=== PATIENT | male | born 1935 | race Caucasian/White ===

== ENCOUNTER → 2016-12-09 | Outpatient (CLI) | payer MEDICARE ==
[~2016-12-09] MED LIST: ANTIVERT-DPS25 MG PO; ASA CHILDREN'S81 MG PO; ASPIR 8181 MG PO; ASPIRIN EC81 MG PO; BRILINTA90 MG PO; CALCIUM600 MG PO; CARAFATE DPS1 GM PO; CLARITIN DPS10 MG PO; COLACE-DPS100 MG PO; COUMADIN DPS2 MG PO; COUMADIN5 MG PO; CULTURELLE1 CAP PO; DELTASONE DPS10 MG PO; DULCOLAX-DPS5 MG PO; ENTRESTO 24 MG1 EACH PO; FEOSOL-DPS325 MG PO; GAMMAGARD S-D10 GM IV; IMODIUM DPS2 MG PO; INVANZ1 GM IV; IRON18 MG PO; KLOR-CON M2020 ME1 PO; LASIX DPS40 MG PO; LAXATIVE5 M1 PO; LEVAQUIN DPS500 MG PO; LISINOPRIL10 MG PO; MAALOX DPS30 ML PO; MARYS PO; METOPROLOL SUCC25 MG PO; METOPROLOL TART25 MG PO; MORPHINE S100 MG/5 M PO; MORPHINE S20 MG/1 ML PO; MUCINEX600 MG PO; NITROSTAT0.4 MG SL; NORMAL SALINE FL5 ML IV; OCTAGAM 10% VI200 ML IV; OYSTER SHELL C500 MG PO; PHENERGAN6.25 MG/5 PO; PLAVIX75 MG PO; PRESERVISION A1 EAC1 PO; PRESERVISION A1 EACH PO; PRILOSEC DPS20 MG PO; PROTONIX40 MG PO; SURFAK DPS240 MG PO; THERA1 EACH PO; TUMS DPS500 MG PO; TYLENOL DPS325 MG PO; VALTREX DPS1 GM PO; VANCOCIN-DPS1 GM IV; VITAMIN D35000 UNI1 PO; ZESTRIL DPS10 MG PO; ZESTRIL DPS2.5 MG PO; [UNRECOGNIZED DRUG - OTHER] PO
== END | disposition home or self-care (01) ==
DX: Z51.81 Encounter for therapeutic drug level monitoring (principal); Z79.01 Long term (current) use of anticoagulants

== ENCOUNTER 2016-12-11 04:56 | Inpatient (IN) | payer MEDICARE ==
[~2016-12-11] VITALS: Ht 170.2 cm; Wt 73.7 kg
--- NOTE | ~2016-12-11 | ECH ---
Transthoracic Echocardiography Report (TTE) Demographics Patient Name PAUL HOOKER Date of Study 12/11/2016 Patient Number [id number] Visit Number [id number] Date of 1935 Room Number 425 Accession Number [id number] Gender Male Age 81 year(s) Referring Coco Giles MD Watch Crystal Cutter Anny Thomas [facility] Physician Physician Aleisha Gaines MD Home Health Scheduler Physician Brent Supervising Ordering Physician Dariana Monae MD/MAMIE ATKINS Nurse Stress Athletic Coach Conclusions Contractility Score Summary At rest the following contractility abnormalities were noted: Hypokinesis of the Apical inferior, the Apical lateral and the Apical anterior segments; Akinesis of the Apical septal and the Apical cap segments. Contractility of all other segments appeared normal. Summary Technically adequate exam. The estimated left ventricular ejection fraction is 40-45%. Segmental wall motion abnormalities noted. Mild concentric left ventricular hypertrophy. Left ventricular apical thrombus noted 1.68x 1.36cm. The left atrium is severely dilated by LA volume index measurement. Compared to echo done 09/18/16 the apical mural thrombus is smaller. Recommendation The patient will be given the results of this study by the physician who ordered the exam. Procedure Type of Study TTE procedure:Echo Limited SF. Procedure Date Date: 12/11/2016 Start: 11:33 Technical Quality: Adequate visualization Indications:LV thrombus, Shortness of breath and Chest pain. Additional Indications:limited echo to evaluate left ventricular function and thrombus Appropriate Use Criteria: 9 Height: 67 inches Weight: 174 pounds BSA: 1.91 m Rhythm: NSR HR: 70 bpm BP: 125/50 mmHg Allergies - Penicillin. - Sulfa. - Other:(Cefdinir, Statins, Tetracycline). M-Mode/2D Measurements LV Diastolic Dimension: 5.28 cm LV Systolic Dimension: 4.07 cm LV Septum Diastolic: 1.13 cm LV PW Diastolic: 1.17 cm AO Root Dimension: 2.75 cm LA Dimension: 4.78 cm RV Diastolic Dimension: 3.49 cm LA volume: 104.89 ml LA volume index: 55 ml/m LVOT: 1.78 cm RV Base: 3 cm RV Mid: 2.1 cm RV Length: 6.6 cm TAPSE: 1.73 cm TDI-S': 10 cm/s Doppler Measurements RA Area: 16.57 cm Findings Left Ventricle The left ventricle is normal in size . Mild concentric left ventricular hypertrophy. Left ventricular apical thrombus noted 1.68x 1.36cm. Right Ventricle Normal right ventricle structure and function. Left Atrium The left atrium is severely dilated by LA volume index measurement. Right Atrium Normal right atrial size. Pericardial Effusion No evidence of pericardial effusion. Miscellaneous Visualized portions of the aortic root and ascending aorta appear normal in size. Pleural Effusion No evidence of pleural effusion. Contractility Score LV regional wall motion:(0-Non visualized 1-Normal 2-Hypokinesis 3-Akinesis 4-Dyskinesis 5-Aneurysm) Signature
[~2016-12-11 04:56] MED LIST changes: -ANTIVERT-DPS25 MG PO; -ASPIRIN EC81 MG PO; -CALCIUM600 MG PO; -CARAFATE DPS1 GM PO; -COLACE-DPS100 MG PO; -COUMADIN DPS2 MG PO; -COUMADIN5 MG PO; -CULTURELLE1 CAP PO; -DELTASONE DPS10 MG PO; -ENTRESTO 24 MG1 EACH PO; -FEOSOL-DPS325 MG PO; -IMODIUM DPS2 MG PO; -INVANZ1 GM IV; -KLOR-CON M2020 ME1 PO; -NORMAL SALINE FL5 ML IV; -PRESERVISION A1 EAC1 PO; -TUMS DPS500 MG PO; -VANCOCIN-DPS1 GM IV
--- NOTE | 2016-12-15 01:31 | ER ---
ADMIT: 12/11/2016 RM/LOC: 425 [facility] MR#: [id number] 2620 [facility] [address] [place], [place] [address] PAUL HOOKER [address] [place] [address] Emergency Room Report SEX: M AGE: 81 : 1935 DATE: 12/11/2016 See T-sheet for complete H and P. ADDENDUM: HISTORY AND PHYSICAL: The patient is an 81-year-old male with known coronary artery disease, who presents to the ER complaining of increased shortness of breath. Additionally, states he has had some nausea in the past 2 nights and actually had a subjective fever last night. He does normally complain of some chest pain and when asked initially, did not complain of any real change or concerns with the chest pain that he is having at this time, it is his baseline. Later during questioning, he does state that maybe his chest pain is a little bit more than normal. REVIEW OF SYSTEMS: A 12-point review of systems is done and otherwise negative except as in HPI. PAST MEDICAL HISTORY: Significant for coronary artery disease, hypertension, GERD. PREVIOUS PROCEDURES/SURGERIES: He has had a stent, an appendectomy, cholecystectomy, and a tonsillectomy. MEDICATIONS: See nurse's note. He is currently on: 1. Aspirin. 2. Coumadin. 3. Plavix. ALLERGIES: SEE NURSE'S NOTE. SOCIAL HISTORY: Lives with his and does not smoke, drink, or use drugs. PHYSICAL EXAMINATION: See T-sheet. LABORATORY DATA: Hemoglobin of 10.9. Chemistries are normal. Lactic acid 0.9. CK of 69, CK-MB of 31, troponin of 1.86, BNP of 15,614, INR is 1.35. EMERGENCY DEPARTMENT COURSE: With the patient's complaints of subjective fevers, shortness of breath, I did go ahead and start the sepsis protocol on ADMIT: 12/11/2016 RM/LOC: 425 [facility] MR#: [id number] [address] [address] PAUL HOOKER [address] [place] [address] Emergency Room Report SEX: M AGE: 81 : 1935 the patient. Chest x-ray showed nothing acute, his lactic acid was fine as was his white count. His troponin, however, was elevated and had a high BNP. I contacted Dr. Gaines, who is familiar with the patient and plan at this time is to start the patient on the heparin ACS protocol for the possibility of a ywd-FS-qejkanwts NH, and he will be admitted. He normally sees Dr. Sepulveda, so I contacted Dr. Westbrook, who will be writing admission orders. DIAGNOSES: 1. Shortness of breath. 2. Chest pain. 3. Elevated troponin. 4. Asn-VT-fgmowqfrw myocardial infarction. Arvin Hamilton MD/ eboni JOB #: [id number] CC: Luis Alfredo Sepulveda MD, Attending Physician Luis Alfredo Sepulveda MD, Family Physician
[2016-12-18] MEDS ORDERED: CALCIUM600 MG PO (13:46)
[2016-12-18] MEDS ORDERED: CULTURELLE1 CAP PO (13:49)
[2016-12-18] MEDS ORDERED: COLACE-DPS100 MG PO (13:50)
[2016-12-18] MEDS ORDERED: IMODIUM DPS2 MG PO (13:50)
[2016-12-18] MEDS ORDERED: NORMAL SALINE FL5 ML IV (13:51)
[2016-12-18] MEDS ORDERED: KLOR-CON M2020 ME1 PO (13:51)
[2016-12-18] MEDS ORDERED: VANCOCIN-DPS1 GM IV (13:51)
--- NOTE | 2016-12-20 07:57 | HP ---
ADMIT: 12/11/2016 RM/LOC: 425 [facility] MR#: [id number] [address] [address] PAUL HOOKER [address] [address] History and Physical SEX: M AGE: 81 : 1935 DATE OF SERVICE: HISTORY OF PRESENT ILLNESS: The patient is an 81-year-old male with a complicated past medical history that includes coronary artery disease, status post 4 stents, chronic chest pain, IgG subclass deficiency, pancytopenia, and some congestive heart failure who has been hospitalized for the above complaints multiple times over the last 6-8 months. He comes into the emergency room tonight with some worsening of his chronic chest pain that has been continual over the last 24-48 hours. His chest pain is substernal. He has some associated shortness of breath. He has also had a mild cough over the last few days, which is what delayed his presentation to the emergency room for his current symptoms. Although, the records are unavailable to myself at this time, he says that he is being followed closely by Cardiology due to a clot in his heart that is about 3/4 inch x 1 inch. He has recently been placed on Coumadin for this. Review of records show his last echo was in June of 2016, which revealed EF of 40-45% with some apical akinesis, severely dilated left atrium and a mildly dilated ascending aorta at 3.5 cm. He did have a cardiac cath in June 2015, which showed some severe 3-vessel kaguy[place] coronary artery disease, patent SVG to LAD, INVESTMENT SALES ASSISTANT of the RCA, and a thrombotic occlusion of the patent SVG to OM branch. At this time, he had PCI to his left circumflex and OM branch and has been on dual antiplatelets since. ER course; workup in the emergency room revealed troponin of 1.86, which is certainly elevated from [place] [address]. Cardiology was contacted. He was started on heparin per acute coronary syndrome protocol. He states his chest pain is still there and is constant though is not worsening or severe at this time. He is admitted to the hospital for acute coronary syndrome. PAST MEDICAL HISTORY: As mentioned above significant for recent hospitalizations for pneumonia and sepsis along with CHF exacerbations. Also, has a history of chronic chest pain. coronary artery disease, status post stents, severe GERD, Shiloh fundoplication, Mason's esophagus, and IgG deficiency. PAST SURGICAL HISTORY: Shiloh fundoplication, appendectomy, tonsillectomy, and cholecystectomy. SOCIAL HISTORY: The patient is retired. He is to his Frantz of 50 years who is with him here today. He is a former smoker. Has not smoked over the last 20 years. REVIEW OF SYSTEMS: The patient does endorse recent fever though he does have a history of fever of unknown origin in the past. He denies any nausea and vomiting. He does endorse some worsening of his chronic chest pain. He also notes that he has been having fatigue of his lower extremities especially and feels like "his legs are not strong enough to support him anymore." Denies any neurologic signs, numbness, or tingling. No urinary complaints. MEDICATIONS: ADMIT: 12/11/2016 RM/LOC: 425 [facility] MR#: [id number] [address] [place] [id number] PAUL HOOKER [address] [place] [address] History and Physical SEX: M AGE: 81 : 1935 1. Valacyclovir 1 g b.i.d. 2. Metoprolol 25 mg 12-1/ in the morning and 12-1/2 in the evenings. 3. Protonix 40 mg daily. 4. Plavix 75 mg daily. 5. Furosemide 40 mg b.i.d. 6. Sucralfate 1 g q.i.d. 7. Warfarin dose has been being adjusted recently. 8. Roxanol p.r.n. for chest pain. 9. PreserVision 20 mg b.i.d. 10.Multivitamin. 11.Aspirin 81 mg daily. 12.Vitamin D 5000 units b.i.d. 13.Calcium 600 mg b.i.d. 14.Iron 325 mg daily. 15.Maalox p.r.n. ALLERGIES: INCLUDE PENICILLIN, TETRACYCLINE, SULFA, TRIMETHOPRIM, AND STATIN. PHYSICAL EXAMINATION: VITAL SIGNS: Temp 99.5, pulse 72, respirations 16, blood pressure 125/50, O2 saturation 97% on room air. GENERAL: The patient is awake, alert, and oriented, and in no acute distress. He is conversational. He is sitting in his hospital room with his . He is in good spirits and very pleasant. HEENT: The patient does wear glasses. Normocephalic and atraumatic. Mucous membranes are moist. NECK: Supple. No lymphadenopathy. No JVD noted. No carotid bruit auscultated. CARDIAC: Regular rhythm and rate. No S3 or S4. No murmurs appreciated. LUNGS: Clear to auscultation bilaterally. No wheezes, rhonchi, or rales. ABDOMEN: Soft, nontender, and nondistended. Normoactive bowel sounds. NEUROLOGIC: Cranial nerves II through XII grossly intact. No focal neurological deficits. EXTREMITIES: No cyanosis. He does have trace edema below the knees bilaterally. Peripheral pulses are 2+ upper and lower extremities bilaterally. Cap refill is less than 3 seconds. LABS AND IMAGING: INR is 1.35. Lactic acid 0.9. White count 8.1, hemoglobin 10.9, platelets 118. He is slightly macrocytic. Blood typing is A positive. CMP is normal except for slightly elevated glucose at 119, phosphorus is low at 2.1. Albumin is low at 2.8. Corrected calcium is normal. GFR is 79. His CK is 69, MB is 3.1, troponin [place] 1.86, [place] [address], procalcitonin is normal. Chest x-ray shows some atelectasis of the left lower lobe but no acute findings. EKG has normal sinus rhythm with some inverted ST in the V2 through V4 leads. ASSESSMENT AND PLAN: 1. Acute coronary syndrome with elevated troponin and a history of coronary artery disease with stenting. We started him on heparin ACS protocol. I ADMIT: 12/11/2016 RM/LOC: 425 [facility] MR#: [id number] [address] [address] PAUL HOOKER [address] [place] [address] History and Physical SEX: M AGE: 81 : 1935 would appreciate Cardiology input. Of note, he has had elevated troponins in the past that are just secondary to sepsis and other illnesses. 2. Recurrent fevers and aphthous stomatitis thought to be secondary to his IgG deficiency. He is due for his next infusion in one week. We currently do not have Infectious Disease on board, but could consider that if fevers return during this hospitalization. 3. Gastroesophageal reflux disease status post Shiloh fundoplication. 4. Chronic chest pain. In addition to heparin, the patient has morphine for pain control. He was given a full-strength aspirin. We will continue to trend out his enzymes. We will keep him on bedrest and n.p.o. until Cardiology see him in case they wanted to do a procedure. Candido Gonzalez MD Resident / Luis Alfredo Sepulveda MD / eboni JOB #: [id number] CC: Luis Alfredo Sepulveda, Attending Physician Luis Alfredo Sepulveda, Family Physician
[2016-12-26] MEDS ORDERED: VALTREX DPS1 GM PO (11:13)
[2016-12-26] MEDS ORDERED: METOPROLOL TART25 MG PO (11:13)
[2016-12-26] MEDS ORDERED: PROTONIX40 MG PO (11:14)
[2016-12-26] MEDS ORDERED: PLAVIX75 MG PO (11:14)
[2016-12-26] MEDS ORDERED: LASIX DPS40 MG PO (11:14)
[2016-12-26] MEDS ORDERED: COUMADIN DPS2 MG PO (11:15)
[2016-12-26] MEDS ORDERED: CARAFATE DPS1 GM PO (11:15)
[2016-12-26] MEDS ORDERED: MORPHINE S100 MG/5 M PO (11:15)
[2016-12-26] MEDS ORDERED: VITAMIN D35000 UNI1 PO (11:16)
[2016-12-26] MEDS ORDERED: FEOSOL-DPS325 MG PO (11:16)
[2016-12-26] MEDS ORDERED: PRESERVISION A1 EAC1 PO (11:16)
[2016-12-26] MEDS ORDERED: THERA1 EACH PO (11:16)
[2016-12-26] MEDS ORDERED: ASPIRIN EC81 MG PO (11:16)
[2016-12-26] MEDS ORDERED: COUMADIN5 MG PO (11:17)
[2016-12-26] MEDS ORDERED: MAALOX DPS30 ML PO (11:17)
[2016-12-26] MEDS ORDERED: TYLENOL DPS325 MG PO (11:17)
--- NOTE | 2017-01-06 10:31 | CO ---
ADMIT: 12/11/2016 RM/LOC: 425 [facility] MR#: [id number] 2620 [facility] [address] [place], [place] [address] [address]UL HOOKER [address] [place] [address] Consultation SEX: M AGE: 81 : 1935 DATE OF CONSULTATION: 12/11/2016 ATTENDING PHYSICIAN: Luis Alfredo Sepulveda CONSULTING PHYSICIAN: Farhana Burdick MD REASON FOR CONSULT: Low IgG and fevers. Thank you, Dr. Sepulveda, for the consult and involving me in this patient's care. HISTORY OF PRESENT ILLNESS: Mr. Hooker is an 81-year-old man with history of coronary artery disease, who came into ER this morning with complaint of increased shortness of breath. He did complain of some fever around 102 degrees Fahrenheit, followed by nausea and vomiting since the last 2 days. He was noted to have increased troponin and non-ST elevation myocardial infarction. He is also on anticoagulation for left ventricular thrombus. The patient has history of IgG deficiency, and he has been receiving IV immunoglobulins as an outpatient and his last dose was on November 22, 2016. The patient has a right arm PICC line, which was placed around 2 to 3 months back per the patient as he is a hard stick. At present, he feels mildly better, and he has had no fever since admission. PAST MEDICAL HISTORY: 1. Recurrent pneumonias. 2. GI bleed. 3. Coronary artery bypass graft. 4. Shiloh fundoplication x2. 5. Peptic ulcer disease. 6. Chronic chest pain. 7. Right shoulder pain. PAST SURGICAL HISTORY: Cataract surgery, appendectomy, tonsillectomy, cholecystectomy, and multiple gastroscopies and colonoscopy. ALLERGIES: ATIVAN, PENICILLIN, CEPHALOSPORIN, SULFA, LIPITOR, AND TETRACYCLINE. SOCIAL HISTORY: He lives at home with his . Denies any alcohol or recreational drug use. Quit smoking in 1996. FAMILY HISTORY: Significant for diabetes mellitus in his sibling. REVIEW OF SYSTEMS: A 10-point review of systems negative except as mentioned in the HPI. CURRENT MEDICATIONS: 1. Aspirin. 2. Carafate. ADMIT: 12/11/2016 RM/LOC: 425 [facility] MR#: [id number] [address] [address] [address] [place] [address] Consultation SEX: M AGE: 81 : 1935 3. Feosol. 4. Lasix. 5. Lopressor. 6. Plavix. 7. Valtrex 1 g b.i.d. 8. Vitamin D. 9. Heparin drip. PHYSICAL EXAMINATION: VITAL SIGNS: Current temperature 98, heart rate 77, respirations 20, blood pressure 124/52, and 96% on room air. GENERAL: In no acute distress. HEENT: Head is normocephalic and atraumatic. Extraocular movements are intact. CHEST: Decreased breath sounds bilaterally. No wheezes, rales, or rhonchi. CARDIOVASCULAR: S1 and S2 heard. No murmurs, rubs, or gallops. ABDOMEN: Soft, nontender, and nondistended. Active bowel sounds. EXTREMITIES: No peripheral edema. SKIN: No rash noted on exposed skin. PSYCH: Normal affect. Memory intact. DATA REVIEW: CBC shows white count of 8.1, hemoglobin 10.9, and platelets of 118. Urinalysis is negative with just 2 wbc's. BMP shows creatinine of 0.9 and normal AST and ALT. ASSESSMENT AND PLAN: 1. Non-ST elevated myocardial infarction, currently on anticoagulation. 2. Left ventricular thrombus, on anticoagulation. 3. Fever - He has been afebrile since admission. His chest x-ray showed possible left lower lobe atelectasis. His PICC line site has mild erythema, and I recommend removing it and culturing the tip. The blood cultures are pending at this time. I do not think he needs any antibiotic at this time. 4. IgG subclass deficiency - Received IVIG on November 22, 2016. His next dose is due next week. 5. Coronary artery disease, status post CABG and PCI. Thank you for the consult, and I will continue to follow the patient. Farhana Burdick MD/ eboni JOB #: [id number] CC: Luis Alfredo Sepulveda, Attending Physician Luis Alfredo Sepulveda, Family Physician
--- NOTE | 2017-01-08 07:11 | DS ---
ADMIT: 12/11/2016 RM/LOC: 425 [facility] MR#: [id number] [address] [address] [place] [address] [place] [address] Discharge Summary SEX: M AGE: 81 : 1935 ADMISSION DATE: 12/11/2016 DISCHARGE DATE: 12/17/2016 DISCHARGE DIAGNOSES: 1. Staph bacteremia, on antibiotics. 2. IgG subclass deficiency. 3. Coronary artery disease with chest pain. 4. Left ventricular thrombus, on anticoagulation therapy. CONSULTATIONS: 1. Tang Westbrook MD, Cardiology. 2. Farhana Burdick MD, Infectious Disease. BRIEF HISTORY OF PRESENT ILLNESS: The patient is an 81-year-old male with a complicated past medical history, including coronary artery disease, status post four stents, chronic chest pain, IgG subclass deficiency, CHF, and left ventricular thrombus. He presented to the hospital and has been hospitalized multiple times for the above complaints over the last 6-8 months. Came into the emergency room on December 11 with complaints of chest pain and shortness of breath. In the emergency room, he was found to have an elevated troponin of 1.86. He does have a history of elevated troponin, but given his complaints and complicated medical history, he was admitted for acute coronary syndrome and started on a heparin drip. HOSPITAL COURSE: Cardiology was consulted, who agreed with trending cardiac enzymes but thought that given patient's unusual presentation and complicated medical history, that his elevation in troponin reflects a secondary illness rather than acute coronary syndrome. They agreed to continue rule-out and anticoagulation for his left ventricular thrombus, especially given that his INR was subtherapeutic on presentation to the emergency room. Infectious Disease was also consulted for patient's IgG subclass deficiency as well as a fever here in the hospital. They recommended removing his chronic PICC line and culturing the tip as well as drawing blood cultures, but we did not start antibiotics immediately at that time. Troponin did not continue to elevate and patient remained afebrile. However, one of two blood cultures tested positive for gram positive cocci, so we started him on clindamycin, and this was changed to vancomycin by our infectious disease specialist. Social Work was contacted regarding setting him up with either Home Health or outpatient infusions of antibiotics as he was going to need antibiotics for an extended period of time. Cardiology performed an echo to evaluate the left ventricular thrombus. He remained stable from a cardiac standpoint, and Cardiology signed off. INR became therapeutic so heparin drip was stopped and patient was resumed on his home Coumadin. He was de-escalated to telemetry status. He did have a bout of diarrhea here in the hospital. His C diff was negative so this was treated with [id number] antidiarrheal medications. Electrolytes were monitored and replaced as necessary. Social Work was able to arrange for infusions of not only his IgG, which he receives weekly, but also the vancomycin antibiotic at the [facility], which is closer to the patient's house. He remained stable and on December 17 he was discharged home ADMIT: 12/11/2016 RM/LOC: 425 [facility] MR#: [id number] [address] [place] [phone] [facility] [place] [address] Discharge Summary SEX: M AGE: 81 : 1935 with plans for vancomycin until December 23 for an indication of Staph bacteremia. DISCHARGE MEDICATIONS: 1. Valacyclovir 1 g b.i.d. 2. Pantoprazole 40 mg daily. 3. Metoprolol 12.5 mg b.i.d. 4. Clopidogrel 75 mg daily. 5. Furosemide 40 mg b.i.d. 6. Sucralfate 1 g q.i.d. 7. Morphine 30 mg q.4 p.r.n. 8. PreserVision b.i.d. 9. Multivitamin daily. 10.Aspirin 81 mg daily. 11.Vitamin D 5000 units b.i.d. 12.Calcium 600 mg b.i.d. 13.Iron 325 mg at bedtime. 14.Maalox p.r.n. 15.Warfarin 2 mg on Friday, Friday, Friday, , Friday, Friday and 2.5 mg on Fridays. 16.He was also discharged on vancomycin infusions per above. FOLLOWUP: The patient is to have a regular diet. He is to have an INR checked in 1-2 weeks and follow up with Dr. Sepulveda in 1-2 weeks, which was scheduled for 12/27 at 2:10 in the afternoon. Candido Gonzalez MD Resident / Luis Alfredo Sepulveda MD / antoine JOB #: [id number] CC: Luis Alfredo Sepulveda MD, Attending Physician Luis Alfredo Sepulveda MD, Family Physician
--- NOTE | 2017-01-10 10:32 | CO ---
ADMIT: 12/11/2016 RM/LOC: 425 [facility] MR#: [id number] [address] [address] PAUL HOOKER [address] [place] [address] Consultation SEX: M AGE: 81 : 1935 DATE OF CONSULTATION: 12/11/2016 ATTENDING PHYSICIAN: Luis Alfredo Sepulveda CONSULTING PHYSICIAN: Tang Westbrook MD REASON FOR CONSULT: Chest Pain. Elva Segura, VERONICA, scribing for Dr. Tang Westbrook. HISTORY OF PRESENT ILLNESS: Selvin is a pleasant 81-year-old gentleman, I have been asked to see in Cardiology consultation by Dr. Sepulveda for chest discomfort. He follows regularly at [facility]. He was last seen on 11/[address] Raman. He has history of coronary artery disease, status post myocardial infarction in June of 2015 resulting in a proximal OM1 drug-eluting stent X2, and proximal circumflex drug-eluting stent as well. He also has history of SVG to LAD and SVG to marginal branch circumflex bypass in 1995, hypertension, hyperlipidemia, former tobacco use, and chronic angina. Last echocardiogram was in June of 2016, showing ejection fraction of 40% to 45% with apical akinesis and severe left atrial enlargement in the hospital. He had a followup echo in September of this year, showing apical mural thrombus 1.6 x 2.3 cm with ejection fraction continued around 40%. He has been on anticoagulation for that. Last stress test was in 2015, showing infarct but no new ischemia compared to 2013. Selvin presented to [facility] early this morning with complaints of chest discomfort and severe shortness of breath. He has had multiple hospitalizations lately in the last 6 months over pneumonia and fevers. Selvin presented last night with shortness of breath that he describes a severe. His states that the night before last, he had 102.9 temperature, and all day yesterday just did not feel good. He was unable to eat because of nausea and generalized illness. Last night, his temperature was a 102.5, and he was having a lot of emesis. He went to bed to rest, however at 3:30 in the morning he woke up extremely short of breath stating he could not breathe at all and asked to be brought to the emergency room. His drove him in. He also had some chest heaviness last night that radiated down his left arm. He was diaphoretic all day yesterday. No nausea last night with the chest discomfort. His states that up until two days ago he had been feeling fine. Cardiac enzymes were drawn and CK was 69, MB 3.1, with a relative index of 4.5, and a troponin of 1.86. Looking back into his hospitalization in June, his peak troponin at that time was 5.66 with 103 temperature and aspiration pneumonia. At the time of his myocardial infarction in June of 2015, his troponin was about 6.8. He does state that his symptoms prior to GA in June 2016, his symptoms were due to extreme chest discomfort, heaviness, tightness, and then he feels that is different than what he was experiencing last night. EKG did not show any significant ST-T changes consistent with acute GA. PAST MEDICAL HISTORY: Hypertension; hyperlipidemia; previous tobacco use ADMIT: 12/11/2016 RM/LOC: 425 [facility] MR#: [id number] [address] [place] [phone] PAUL [address] [place] [address] Consultation SEX: M AGE: 81 : 1935 after a 30 pack year history; coronary artery disease as outlined above; IgG subclass disorder, receiving IVIG infusions. He does currently have mouth sore stating this happened about one week prior to his next infusion. History of peptic ulcer disease with hiatal hernia, GERD, difficulty swallowing, gallbladder disease. PAST SURGICAL HISTORY: Includes Shiloh fundoplication, cholecystectomy, hiatal hernia surgeries, inguinal hernia surgeries, and bypass surgeries. ALLERGIES: PENICILLIN, STATINS, WELCHOL, SULFA, AND TETRACYCLINES. MEDICATIONS: Current medications include: 1. Aspirin 81 daily. 2. Carafate 1 g a.c. and at bedtime. 3. Iron sulfate 325 daily. 4. Lasix 40 p.o. b.i.d. 5. Lopressor 12.5 p.o. b.i.d. 6. Oyster shell calcium 500 p.o. b.i.d. 7. Plavix 75 daily. 8. Protonix 40 daily. 9. Multivitamin daily. 10.Valtrex 1 g p.o. b.i.d. 11.Vitamin D 5000 units p.o. b.i.d. 12.Heparin drip per protocol for subtherapeutic INR with Coumadin. FAMILY HISTORY: Multiple family members with cancer. SOCIAL HISTORY: Selvin is . He lives at home with his . He denies any alcohol or drug use. He has quit smoking after a 30 pack year history, but reports caffeine use. REVIEW OF SYSTEMS: GENERAL: Reports increased fatigue over the last few days. Recent fever up to 102.9. No weight changes. EYES: Denies double vision, blurred vision, cataracts, or glaucoma. ENT: Denies hearing loss or problems with nose, mouth or throat. RESPIRATORY: Recent pneumonia. No hemoptysis. Shortness of breath on arrival to the hospital. GASTROINTESTINAL: History of GERD. History of hiatal hernia. History of gallbladder disease, status post cholecystectomy. History of Shiloh fundoplication. GENITOURINARY: Denies dysuria, hematuria, nocturia, urinary tract infection, or kidney stones. Denies history of renal insufficiency or failure. MUSCULOSKELETAL: Denies history of arthritis or gout. Denies muscle or joint pains. ENDOCRINE: Denies history of thyroid dysfunction or diabetes. HEMATOLOGY: IgG subclass disorder. NEUROLOGIC: Denies history of stroke or seizure. PSYCHIATRIC: Denies history of mental illness or feelings of depression. ADMIT: 12/11/2016 RM/LOC: 425 [facility] MR#: [id number] [address] [facility] [address] [place], [place] [address] PAUL HOOKER [address] [place] [address] [place] [address] Consultation SEX: M AGE: 81 : 1935 PHYSICAL EXAMINATION: VITAL SIGNS: Blood pressure 125/50, heart rate 72, respirations 16, temperature 99.5, oxygenation 97% on room air. GENERAL: Pale, alert, good humor. SKIN: [place], warm and dry. HEENT: Eyes; sclerae clear. No xanthelasmas. Discoloration of tongue. CHEST: Respirations are even and unlabored. Lungs are clear to auscultation. HEART: Regular rate and rhythm. Normal S1, S2. No murmurs, rubs or gallops. ABDOMEN: Soft, nontender. Multiple scars. MUSCULOSKELETAL: Gait is normal. EXTREMITIES: Peripheral pulses palpable. No clubbing, cyanosis or edema. PSYCHIATRIC: Alert and oriented. Mood and affect are appropriate. LABORATORY AND DIAGNOSTIC DATA: Chest x-ray on 12/11, showed atelectasis versus scarring in the left lower lobe. Sodium 137, potassium 4.0, BUN 16, creatinine 0.9, glucose 119, magnesium 2.3. CK 69, MB 3.1, troponin 1.86, relative index 4.5, INR 1.35. White blood cell count 8.1, hemoglobin 10.9, hematocrit 31.9, platelets 118. ASSESSMENT AND PLAN: 1. Equivocal troponin. 2. Recent diagnosis of apical LV thrombus. 3. Recurrent fevers. 4. Known history of coronary artery disease. 5. Ischemic cardiomyopathy. 6. Immunodeficiency. Selvin is a pleasant 81-year-old gentleman with known history of coronary artery disease and chronic chest pain. He was admitted with fever, shortness of breath, and chest discomfort. His troponin was 1.8. He has history of elevated troponin in the past as well. He has recurrent fevers and he is IgG deficient. ADMIT: 12/11/2016 RM/LOC: 425 [facility] MR#: [id number] [address] [facility] [address] [place] [phone] PAUL [address]ER [address] [place] [address] Consultation SEX: M AGE: 81 : 1935 Selvin is a very unusual presentation. I do not think this reflects an ACS, but it is probably secondary to his current illness. I would recommend continue to rule out with cardiac enzymes. His INR is subtherapeutic given his history of apical thrombus. I am okay with him on heparin at this time. I will check a limited echo for LV function and history of his LV apical thrombus as well. Thank you for the consultation. "I have read and agree with the documentation that has been completed regarding this visit. By signing this record, I attest that the documentation was completed in my physical presence and is an accurate record of the encounter." Elva Segura RN / Tang Westbrook MD / eboni JOB #: [id number] CC: Luis Alfredo Sepulveda, Attending Physician Luis Alfredo Sepulveda, Family Physician
[2017-01-29] MEDS ORDERED: TUMS DPS500 MG PO (12:36)
[2017-01-29] MEDS ORDERED: INVANZ1 GM IV (12:37)
[2017-01-29] MEDS ORDERED: NITROSTAT0.4 MG SL (12:37)
[2017-01-29] MEDS ORDERED: COLACE-DPS100 MG PO (12:37)
[2017-01-29] MEDS ORDERED: DELTASONE DPS10 MG PO (12:39)
[2017-01-29] MEDS ORDERED: KLOR-CON M2020 ME1 PO (12:39)
[2017-01-29] MEDS ORDERED: ANTIVERT-DPS25 MG PO (12:40)
[2017-01-29] MEDS ORDERED: CALCIUM600 MG PO (12:40)
[2017-01-29] MEDS ORDERED: CULTURELLE1 CAP PO (12:40)
[2017-03-06] MEDS ORDERED: ENTRESTO 24 MG1 EACH PO (13:09)
== END 2016-12-17 12:15 | disposition home or self-care (01) | DRG 313 ==
LOC: ER 04:56 → 4PCU 06:41
PROVIDERS: ADMIT Family Medicine
DX: R07.9 Chest pain, unspecified (principal); I24.0 Acute coronary thrombosis not resulting in myocardial infarction; D80.3 Selective deficiency of immunoglobulin G [IgG] subclasses; R78.81 Bacteremia; I50.9 Heart failure, unspecified; I11.0 Hypertensive heart disease with heart failure; B95.8 Unspecified staphylococcus as the cause of diseases classified elsewhere; R06.02 Shortness of breath; I25.5 Ischemic cardiomyopathy; K12.0 Recurrent oral aphthae; R19.7 Diarrhea, unspecified; R79.89 Other specified abnormal findings of blood chemistry; I25.10 Atherosclerotic heart disease of native coronary artery without angina pectoris; K21.9 Gastro-esophageal reflux disease without esophagitis; K22.70 Barrett's esophagus without dysplasia; I25.2 Old myocardial infarction; E78.5 Hyperlipidemia, unspecified; Z79.02 Long term (current) use of antithrombotics/antiplatelets; Z79.01 Long term (current) use of anticoagulants; Z95.5 Presence of coronary angioplasty implant and graft; Z87.11 Personal history of peptic ulcer disease; Z87.891 Personal history of nicotine dependence; Z79.82 Long term (current) use of aspirin

== ENCOUNTER 2016-12-19 19:44 | Emergency (ER) | payer MEDICARE ==
[~2016-12-19 19:44] MED LIST changes: +CALCIUM600 MG PO; +COLACE-DPS100 MG PO; +CULTURELLE1 CAP PO; +IMODIUM DPS2 MG PO; +KLOR-CON M2020 ME1 PO; +NORMAL SALINE FL5 ML IV; +VANCOCIN-DPS1 GM IV
--- NOTE | 2016-12-20 19:27 | ER ---
ADMIT: 12/19/2016 RM/LOC: ER [facility] MR#: [id number] [address] [address] PAUL HOOKER [address] [place] [address] [place] [address] Emergency Room Report SEX: M AGE: 81 : 1935 DATE: 12/19/2016 HISTORY OF PRESENT ILLNESS: The patient is an 81-year-old male with past medical history of CHF, coronary artery disease status post double bypass, multiple pneumonias, and IgG deficiency, who receives monthly injection of the IVIG, came to the ER with chief complaint of fever. The patient was recently hospitalized by the end of the November for non-ST elevation TX, and the patient was febrile and blood culture was positive for Staphylococcus hominis and Staphylococcus epidermidis and patient was discharged to home with PICC line and daily vancomycin intravenous treatment. The patient states today during IVIG injection, he became nauseous and vomited once and, per , became febrile to 102.2 and was brought to the ER. The patient denies any headaches, chest pain, shortness of breath, abdominal pain, or any new symptoms and states the nausea and vomiting has resolved. PHYSICAL EXAMINATION: GENERAL: In the ER, the patient was in no obvious pain or distress. VITAL SIGNS: Temperature in the triage was 100.7. The patient had blood pressure of 126/56 with a heart rate of 80 and respiratory rate of 18. HEAD AND NECK: Exam was normal, trachea midline. LUNGS: Clear bilaterally without any crackles. HEART: Normal heart sounds. ABDOMEN: Soft and nontender. The rest of the physical exam is negative. The patient has a PICC line in left upper extremity which is nonerythematous and there are no obvious signs of infection around the PICC line. EMERGENCY DEPARTMENT COURSE: Considering the elevated temperature, sepsis workup on this patient was started. Chest x-ray did not show any acute changes. EKG was normal sinus rhythm with a rate of 87 and cardiac enzymes troponin I was negative. Urine had 3 wbc's and 10 rbc's. Lactic acid was 1.7. The patient had sodium of 135 with potassium 4.4 and bicarb of 24 and creatinine of 1.0 and BUN of 15. The patient had WBC of 8.6 with hemoglobin ADMIT: 12/19/2016 RM/LOC: ER [facility] MR#: [id number] [address] [address] [address] [facility] [place] [address] Emergency Room Report SEX: M AGE: 81 : 1935 of 10.9 and platelet was 145,000. In the ER, the patient was observed, and in the repeat temperature check, the patient's temperature was 97 degrees. The patient was in no pain or distress. After talking to Dr. Westbrook and discussing the patient, Dr. Westbrook knew the patient very well, we both agreed that this could be a reaction to the intravenous immunoglobulin injection, although there is always a chance of infection, but the patient is already on antibiotic therapy IV. Dr. Westbrook advised that the patient could be safely discharged to home and could be followed up as an outpatient by Dr. Sepulveda. Plan was discussed with the patient and spouse and they both acknowledged they understood and agreed with it and they are going to call Dr. Sepulveda's office tomorrow morning. The patient was discharged to home with return precautions. Keith Cagle MD/ eboni JOB #: [id number] CC: Keith Cagle MD, Attending Physician Luis Alfredo Sepulveda MD, Family Physician
[2016-12-26] MEDS ORDERED: VALTREX DPS1 GM PO (11:13)
[2016-12-26] MEDS ORDERED: METOPROLOL TART25 MG PO (11:13)
[2016-12-26] MEDS ORDERED: PLAVIX75 MG PO (11:14)
[2016-12-26] MEDS ORDERED: LASIX DPS40 MG PO (11:14)
[2016-12-26] MEDS ORDERED: PROTONIX40 MG PO (11:14)
[2016-12-26] MEDS ORDERED: COUMADIN DPS2 MG PO (11:15)
[2016-12-26] MEDS ORDERED: MORPHINE S100 MG/5 M PO (11:15)
[2016-12-26] MEDS ORDERED: CARAFATE DPS1 GM PO (11:15)
[2016-12-26] MEDS ORDERED: PRESERVISION A1 EAC1 PO (11:16)
[2016-12-26] MEDS ORDERED: THERA1 EACH PO (11:16)
[2016-12-26] MEDS ORDERED: VITAMIN D35000 UNI1 PO (11:16)
[2016-12-26] MEDS ORDERED: ASPIRIN EC81 MG PO (11:16)
[2016-12-26] MEDS ORDERED: FEOSOL-DPS325 MG PO (11:16)
[2016-12-26] MEDS ORDERED: COUMADIN5 MG PO (11:17)
[2016-12-26] MEDS ORDERED: MAALOX DPS30 ML PO (11:17)
[2016-12-26] MEDS ORDERED: TYLENOL DPS325 MG PO (11:17)
[2017-01-29] MEDS ORDERED: TUMS DPS500 MG PO (12:36)
[2017-01-29] MEDS ORDERED: INVANZ1 GM IV (12:37)
[2017-01-29] MEDS ORDERED: NITROSTAT0.4 MG SL (12:37)
[2017-01-29] MEDS ORDERED: COLACE-DPS100 MG PO (12:37)
[2017-01-29] MEDS ORDERED: DELTASONE DPS10 MG PO (12:39)
[2017-01-29] MEDS ORDERED: KLOR-CON M2020 ME1 PO (12:39)
[2017-01-29] MEDS ORDERED: ANTIVERT-DPS25 MG PO (12:40)
[2017-01-29] MEDS ORDERED: CALCIUM600 MG PO (12:40)
[2017-01-29] MEDS ORDERED: CULTURELLE1 CAP PO (12:40)
[2017-03-06] MEDS ORDERED: ENTRESTO 24 MG1 EACH PO (13:09)
== END 2016-12-19 22:52 | disposition home or self-care (01) ==
LOC: ER 19:44
DX: R50.9 Fever, unspecified (principal); I25.10 Atherosclerotic heart disease of native coronary artery without angina pectoris; I50.9 Heart failure, unspecified; Z90.49 Acquired absence of other specified parts of digestive tract; Z88.0 Allergy status to penicillin; Z88.2 Allergy status to sulfonamides; Z79.82 Long term (current) use of aspirin; Z79.899 Other long term (current) drug therapy

== ENCOUNTER 2016-12-23 12:40 | Observation (INO) | payer MEDICARE ==
[~2016-12-23] VITALS: Ht 170.2 cm; Wt 74.0 kg
--- NOTE | 2016-12-24 07:57 | HP ---
ADMIT: 12/23/2016 RM/LOC: 520 [facility] MR#: [id number] 2620 [facility] [address] [place] [phone] PAUL HOOKER W [address] [place] [address] History and Physical SEX: M AGE: 81 : 1935 DATE OF SERVICE: CHIEF COMPLAINT: Mental status change, fever, nausea, and vomiting. HISTORY OF PRESENT ILLNESS: Mr. Fowler is an 81-year-old male who was admitted to [place] on December 11 with similar symptoms. Cultures at that time grew out some Staph species and did have a PICC line in. It was assumed that he did have a Staph sepsis due to the PICC line. The PICC line was removed. He was treated initially with IV Zosyn and IV vancomycin. He was dismissed on December 17, after six days of inpatient to receive another six days of outpatient IV vancomycin. He also has IgG subclass deficiency and receives outpatient immunoglobulin G. On December 19, he received his outpatient IgG and developed fever, chills, and was seen in the emergency room. The emergency room physician after counseling in our office felt that it was probably due to his IV gamma globulin and reaction to that. He continued to receive his IV vancomycin as outpatient through [facility], where they live in [place]. Over this past 2 to 3 days, he has had low grade temperatures, just not felt right. This morning he was in [place] outpatient area to get his last dose of IV vancomycin. He was confused, had some nausea and vomiting there. They called our office, we had them hold on giving the vancomycin and sent him over to our office. Once he arrived to our office, he had the temperature of 99.8. He is not able to say what year it is, otherwise he recalls what he had for breakfast this morning. His , Frantz, is with him and drove him. He denies any pain, but does admit to feeling a little bit queasy and nauseated, just kind of confused, not really sure what is going on. He does recognize me. He knows what month it is, what day of the week it is, but do not know what year it was. His , Frantz, states this morning when she was getting ready to go in for IV vancomycin, he seemed confused and was not sure how to get dressed and she had to help him. He denies any head injuries or any headache. He has no focal neurological signs other than the confusion. Due to confusion and low-grade temp and recent hospitalization for sepsis, he is re-admitted to the hospital this time for further culturing. He has had recurrent pneumonias and pneumonitis, which was felt to be contributed to by his IgG subclass deficiency and by silent aspiration. PAST MEDICAL HISTORY: As outlined in all the previous history and physicals over the last year. He does have extensive history of coronary artery disease, recurrent pneumonia, Shiloh fundoplication surgery x2, peptic ulcer disease, and GI bleed in January 2016. Hospitalized with pneumonia into March and May 2016, and then recently hospitalized here last week with Staph infection of the PICC line, which was removed and he was treated appropriately. He is followed by Dr. Burdick, outpatient for his IgG subclass deficiency; followed by [facility], Dr. Tang Westbrook, for his coronary artery disease. He has had previous CABG and angioplasties on multiple occasions. ALLERGIES: HE IS ALLERGIC TO PENICILLIN, TETRACYCLINE, SULFA, STATINS, AND ADMIT: 12/23/2016 RM/LOC: 520 [facility] MR#: [id number] [address] [place] [phone] PAUL HOOKER [address] [place] [address] [place] [address] History and Physical SEX: M AGE: 81 : 1935 TRIMETHOPRIM. MEDICATIONS: Current medications are; 1. Coumadin. 2. Roxanol for chronic chest pain. 3. Lasix 40 mg daily. 4. Valtrex 1 g t.i.d. 5. Coumadin dose is 2.5 mg once a week and 2 mg other 6 days. 6. Iron 325 mg daily. 7. Lopressor 12.5 mg b.i.d. 8. Carafate 1 g q.i.d. 9. PreserVision. 10.The outpatient immunoglobulin injections every month in Short Stay surgery. FAMILY HISTORY: Unchanged from last week. SOCIAL HISTORY: Unchanged from last week. REVIEW OF SYSTEMS: Unchanged from last week. PHYSICAL EXAMINATION: GENERAL: An 81-year-old male who is alert and cooperative. As mentioned, he did not know the year, but he is cognizant of other events, but seems a little bit confused on what is going on today. VITAL SIGNS: In the office, temperature 99.8, blood pressure 112/60, pulse 75, and O2 saturation 90% on room air. HEENT: Eyes, PERRLA. EOMs are intact. Sclerae are nonicteric. Throat is moist, not inflamed. NECK: Supple. LUNGS: Clear. A little bit upper congestion. No respiratory distress. HEART: Regular rate. No murmur. ABDOMEN: Soft. No tenderness. GENITOURINARY: Deferred. RECTAL: Deferred. EXTREMITIES: No clubbing, cyanosis, or edema. LABORATORY DATA: Chest x-ray in the office showed some bilateral scarring, but no definite infiltrates. White blood count was slightly elevated at 10.4 and hemoglobin was 12.5. Urinalysis was unremarkable. ADMIT: 12/23/2016 RM/LOC: 520 [facility] MR#: [id number] [facility] [address] [address] PAUL HOOKER [address] [place] [address] [place] [address] History and Physical SEX: M AGE: 81 : 1935 DIAGNOSTIC IMPRESSION: 1. Acute mental status change, probably secondary to metabolic process, related to the fever and the nausea and vomiting. 2. Recent Staphylococcal sepsis. 3. IgG subclass deficiency. 4. History of recurrent pneumonitis. 5. Coronary artery disease. 6. Gastroesophageal reflux disease. PLAN: We will admit to the hospital for cultures of the blood, obtain sepsis markers, CT scan of the head, get an Infectious Disease consult with Dr. Burdick. Luis Alfredo Sepulveda MD/ eboni JOB #: [id number] CC: Luis Alfredo Sepulveda, Attending Physician Luis Alfredo Sepulveda, Family Physician
[2016-12-26] MEDS ORDERED: METOPROLOL TART25 MG PO (11:13)
[2016-12-26] MEDS ORDERED: VALTREX DPS1 GM PO (11:13)
[2016-12-26] MEDS ORDERED: PLAVIX75 MG PO (11:14)
[2016-12-26] MEDS ORDERED: PROTONIX40 MG PO (11:14)
[2016-12-26] MEDS ORDERED: LASIX DPS40 MG PO (11:14)
[2016-12-26] MEDS ORDERED: MORPHINE S100 MG/5 M PO (11:15)
[2016-12-26] MEDS ORDERED: COUMADIN DPS2 MG PO (11:15)
[2016-12-26] MEDS ORDERED: CARAFATE DPS1 GM PO (11:15)
[2016-12-26] MEDS ORDERED: FEOSOL-DPS325 MG PO (11:16)
[2016-12-26] MEDS ORDERED: THERA1 EACH PO (11:16)
[2016-12-26] MEDS ORDERED: VITAMIN D35000 UNI1 PO (11:16)
[2016-12-26] MEDS ORDERED: ASPIRIN EC81 MG PO (11:16)
[2016-12-26] MEDS ORDERED: PRESERVISION A1 EAC1 PO (11:16)
[2016-12-26] MEDS ORDERED: TYLENOL DPS325 MG PO (11:17)
[2016-12-26] MEDS ORDERED: COUMADIN5 MG PO (11:17)
[2016-12-26] MEDS ORDERED: MAALOX DPS30 ML PO (11:17)
--- NOTE | 2017-01-06 10:31 | CO ---
ADMIT: 12/23/2016 RM/LOC: 520 [facility] MR#: [id number] [facility] [id number] 26[address] [facility] [address] [place], [place] [address] PAUL HOOKER [address] [place] [address] Consultation SEX: M AGE: 81 : 1935 DATE OF CONSULTATION: 12/23/2016 ATTENDING PHYSICIAN: Luis Alfredo Sepulveda CONSULTING PHYSICIAN: Farhana Burdick MD Infectious Disease Consult REASON FOR CONSULT: Altered mental status. Thank you, Dr. Sepulveda, for the consult and involving me in this patient's care. HISTORY OF PRESENT ILLNESS: Mr. Hooker is an 81-year-old man with past medical history of severe coronary artery disease and IgG subclass deficiency, who was just recently discharged from the hospital last month. At that time, he had coagulase-negative Staphylococcus bacteremia likely thought to be from his PICC line which was removed. Since then, he has received IV vancomycin for around 10 days. Today morning, he was noted to be confused, not able to do things appropriately per his . He was subsequently seen by Dr. Sepulveda, and was running low-grade fever of 100 and hence admitted to the hospital for further management. He was also febrile after his IVIG dose on December 19. At present, the patient is totally appropriate in answering all the questions appropriately. He is oriented x3 and complains of mild chest discomfort which is chronic for him. PAST MEDICAL HISTORY: 1. Recurrent pneumonias. 2. GI bleed. 3. Coronary artery bypass graft. 4. Shiloh fundoplication x2. Peptic ulcer disease. 1. Chronic chest pain. 2. Right shoulder pain. PAST SURGICAL HISTORY: Tonsillectomy, appendectomy, cataract surgery, cholecystectomy, multiple gastrostomies, and colonoscopy. ALLERGIES: ATIVAN, PENICILLIN, CEPHALOSPORIN, SULFA, LIPITOR, AND TETRACYCLINE. OUTPATIENT MEDICATIONS: Reviewed. SOCIAL HISTORY: He lives at home with his . Denies any alcohol or recreational drug use and has quit smoking in 1996. FAMILY HISTORY: Significant for diabetes mellitus in a sibling. REVIEW OF SYSTEMS: A 10-point review of systems negative except as mentioned ADMIT: 12/23/2016 RM/LOC: 520 [facility] MR#: [id number] [address] [facility] [address] [place] [phone] PAUL HOOKER [address] [place] [address] Consultation SEX: M AGE: 81 : 1935 in HPI. PHYSICAL EXAMINATION: VITAL SIGNS: Current temperature 98.2, heart rate 72, respirations 16, blood pressure 132/59, and 93% on room air. GENERAL: No acute distress. HEENT. Head, normocephalic and atraumatic. Extraocular movements intact. Oral mucosa moist. 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 LYMPH: No palpable anterior/posterior cervical or supraclavicular lymphadenopathy. CHEST: Decreased breath sounds bilaterally. No wheezes, rales, or rhonchi. CARDIOVASCULAR: S1 and S2 heard. Regular rate and rhythm. ABDOMEN: Soft, nontender, and nondistended. Active bowel sounds. PSYCH: Normal affect. Memory intact. NEUROLOGIC: Awake, alert, and oriented x3. 5/5 strength in bilateral lower and upper extremities. DATA REVIEW: Labs were drawn at the [facility] and results are not available at this time. Chest x-ray was done, which showed possible pleural effusion per the patient. His last CT scan had shown some reactive mediastinal adenopathy in June 2016. ASSESSMENT AND PLAN: 1. Altered mental status. His mental status is back to baseline and is totally appropriate at this time. He might have had a questionable transient ischemic attack versus reaction to vancomycin. At this time, we will hold his vancomycin and check a random level. He is almost done with his treatment. 2. Mediastinal adenopathy/pleural effusion. I will check a CT chest without contrast for followup. 3. IgG subclass deficiency status post IVIG infusion on December 19, 2016. 4. Recurrent oral ulcers and a plaque on his tongue. Will consult ENT for possible biopsy to rule out any underlying premalignant condition. 5. Coronary artery disease. Thank you for the consult and I will continue to follow the patient. Farhana Burdick MD/ eboni JOB #: [id number] CC: Luis Alfredo Sepulveda, Attending Physician Luis Alfredo Sepulveda, Family Physician
--- NOTE | 2017-01-08 08:04 | CO ---
ADMIT: 12/23/2016 RM/LOC: 520 [facility] MR#: [id number] 2620 [facility] [address] [place], [place] [address] PAUL HOOKER [address] [place], [place] [address] Consultation SEX: M AGE: 81 : 1935 DATE OF CONSULTATION: 12/24/2016 ATTENDING PHYSICIAN: Luis Alfredo Sepulveda CONSULTING PHYSICIAN: Reginald Do MD CHIEF COMPLAINT: Recurrent oral ulcerations. HISTORY OF PRESENT ILLNESS: Mr. Hooker is known to me from previous examination performed in May 2016, for oral ulcerations, which time he had large oropharyngeal mouth and throat ulcers and were consistent with "giant aphthous stomatitis." At that time, I also performed pemphigus and pemphigoid titers, which were negative. I suspected he had viral ulcerations. Pertinent history includes immunoglobulin deficiency and receiving immunoglobulin transfusions. Mr. Hooker is an ex-tobacco user. His present medicines and clinical course affiliated in chart. PHYSICAL EXAMINATION: GENERAL: An 81-year-old, good historian, alert. He is in no acute distress. HEENT: Oral examination shows a punctate 2 x 3 mm ulceration dorsal surface tongue left anterior, and a 1 to 2 mm ulceration mucosal aspect of lower lip. No other mouth, buccal membrane, palate, nor oropharyngeal lesions identified. Nose, airway patent. No mucus, purulence, or lesions. Ear canals, TMs, middle ears clear. NECK: No palpable masses. No adenopathy, thyromegaly, or asymmetry. IMPRESSION: 1. Recurrent oral ulcerations, probable viral (suspect recurrent herpetic ulcerations). 2. Immunoglobulin deficiency. RECOMMENDATION: Based on physical findings, I do not feel these represent a neoplastic process. Biopsy at this point does not appear needed concerning the possibility of neoplasia. Biopsy will, however, be reconsidered at the direction of Dr. Burdick of specific tissue examination, stains etc are required. I will discuss with Dr. Burdick. Reginald Do MD/ eboni JOB #: [id number] CC: Luis Alfredo Sepulveda, Attending Physician Luis Alfredo Sepulveda, Family Physician
[2017-01-29] MEDS ORDERED: TUMS DPS500 MG PO (12:36)
[2017-01-29] MEDS ORDERED: INVANZ1 GM IV (12:37)
[2017-01-29] MEDS ORDERED: NITROSTAT0.4 MG SL (12:37)
[2017-01-29] MEDS ORDERED: COLACE-DPS100 MG PO (12:37)
[2017-01-29] MEDS ORDERED: DELTASONE DPS10 MG PO (12:39)
[2017-01-29] MEDS ORDERED: KLOR-CON M2020 ME1 PO (12:39)
[2017-01-29] MEDS ORDERED: ANTIVERT-DPS25 MG PO (12:40)
[2017-01-29] MEDS ORDERED: CULTURELLE1 CAP PO (12:40)
[2017-01-29] MEDS ORDERED: CALCIUM600 MG PO (12:40)
[2017-03-06] MEDS ORDERED: ENTRESTO 24 MG1 EACH PO (13:09)
== END 2016-12-25 10:00 | disposition home or self-care (01) ==
LOC: 5MS 12:40
PROVIDERS: ADMIT Family Medicine
DX: R41.82 Altered mental status, unspecified (principal); A40.9 Streptococcal sepsis, unspecified; D80.3 Selective deficiency of immunoglobulin G [IgG] subclasses; I25.10 Atherosclerotic heart disease of native coronary artery without angina pectoris; K21.9 Gastro-esophageal reflux disease without esophagitis; Z79.01 Long term (current) use of anticoagulants; J18.9 Pneumonia, unspecified organism; Z79.899 Other long term (current) drug therapy; Z88.0 Allergy status to penicillin; Z88.2 Allergy status to sulfonamides; Z88.1 Allergy status to other antibiotic agents; Z88.8 Allergy status to other drugs, medicaments and biological substances